=== PATIENT | male | born 1955 | race Caucasian/White ===

== ENCOUNTER → 2017-12-11 | Outpatient (CLI) | payer OTHER ==
--- NOTE | 2017-12-11 17:00 | MRI ---
EXAM DESCRIPTION: Lumbar Spine w/wo Contrast: Magnetic resonance imaging. CLINICAL HISTORY: LOW BACK PAIN COMPARISON: None Available. TECHNIQUE: Multiplanar, MRI, multiple standard sequences, without and with standard dose Gadolinium IV contrast, lumbar spine. No adverse reactions. FINDINGS: L5-S1: Moderate loss of disc space. Anterior bulging and endplate ridging. Modic type II endplate reactive changes. Trace retrolisthesis with posterior midline 4 mm disc bulge abutting the thecal sac and descending right S1 nerve above the lateral right recess. Moderate canal narrowing. Flavum ligaments and facets are unremarkable. Mild right foraminal stenosis and moderate left foraminal narrowing. Minimal enhancement in the posterior disc. L4-5: Disc desiccation with no disc space loss. Posterior midline 3 mm bulge with annular fissure abutting the thecal sac. Enhancement of the fissure. Bilateral flavum ligament hypertrophy with borderline canal stenosis. Bilateral mild to moderate foraminal narrowing. Bilateral subarticular recess narrowing. L3-4: Minimal disc desiccation with no significant bulging. Disc bulge bilaterally into the foramina with mild narrowing more on the right. Facet arthrosis and ligament hypertrophy with mild canal narrowing. Minimal facet and enhancement. L2-3: Minimal disc desiccation with anterior bulging. No posterior bulging. Bilateral flavum ligament hypertrophy with mild canal narrowing. Bilateral foramina are patent. L1-2: Disc desiccation and mild disc space loss. Anterior bulging with endplate ridging. Tiny posterior midline bulge. Bilateral flavum ligament hypertrophy and mild canal narrowing. Minimal facet arthrosis. Bilateral foramina are patent. Normal enhancement. Conus terminates at L1 with normal contrast enhancement. T12-L1 minimal disc desiccation and minimal anterior bulging. Canal and foramina are patent. Vertebral bodies are not compressed at any level. Normal marrow signal in the vertebral bodies and the posterior elements. Contrast enhancement. Paravertebral soft tissues show muscle atrophy.Perivertebral contrast enhancement unremarkable. IMPRESSION: 1. Right posterior bulging disc abutting the thecal sac and the descending right S1 nerve above the lateral recess. Canal narrowing. Moderate spondylosis in the disc space. Mild right foraminal stenosis. 2. Posterior midline disc bulge with annular fissure enhancing. Borderline mild canal stenosis. Moderate bilateral foraminal narrowing. 3. Mild spondylosis L1-2 with tiny posterior disc bulge. Electronically signed by: Nicholas Pearce MD 12/11/2017 4:59 PM ANALYSIS CONSULTANT
--- NOTE | 2017-12-11 20:12 | US ---
EXAM DESCRIPTION: Thyroid: Ultrasound. CLINICAL HISTORY: NONTOXIC SINGLE THYROID NODULE COMPARISON: None. TECHNIQUE: Transcutaneous scannin-dimensional and Doppler modes. Largest nodule(s) bilaterally will have point score for TI-RADS. FINDINGS: Right lobe dimensions 6.2 x 3.5 x 3.0 cm. Heterogeneous echoes. Heterogeneous, solid, isoechoic mass with ill-defined donato, echogenic foci without shadowing, wider than tall orientation. Dimensions are 3.4 x 2.9 cm in the transverse plane and 2.4 cm AP. Decreased vascularity. Decreased vascularity in the remainder of the lobe with no echogenic foci. Contour right lobe smooth. Juxta-thyroid masses/fluid: none. Left lobe dimensions 4.7 x 2.3 x 1.8 cm. Heterogeneous echoes. No cystic, no solid, and no complex lesions. Decreased vascularity. No echogenic foci. Contour left lobe smooth. Juxta-thyroid masses/fluid: none. Isthmus thickness 4.5 mm. Heterogeneous echoes. No cystic, no solid, and no complex lesions. Decreased vascularity. Contour smooth. IMPRESSION: 1. 3.4 cm solid mass with echogenic foci in the right lobe of the thyroid gland. TI-RADS score 6, grade TR 4-moderately suspicious. With diameter greater than 1.5 cm, fine-needle aspiration sampling should be considered. Please see recommendations below.* 2. No other nodules in the thyroid gland. No discrete solid masses, cystic masses, or edema in the surrounding soft tissues. *ACR TI-RADS recommendations: TR5 (greater than or equal to 7 points) - FNA if greater than or equal to 1 cm, follow-up if 0.5 - 0.9 cm every year for 5 years TR4 (4-6 points) - FNA if greater than or equal to 1.5 cm, follow-up if 1 - 1.4 cm in 1, 2, 3 and 5 years TR3 (3 points) - FNA if greater than or equal to 2.5 cm, follow -up if 1.5 - 2.4 cm in 1, 3 and 5 years TR2 (2 points) and TR1 (0 points) - No FNA or follow-up * ACR TI-RADS recommends that no more than two nodules with the highest ACR TI-RADS total point should be biopsied and no more than four nodules should be followed. White Paper of the ACR TI-RADS Committee, [place], 2017. Electronically signed by: Nicholas Pearce MD 12/11/2017 8:11 PM INSURANCE BUSINESS ANALYST
== END ==
LOC: US 08:59
PROVIDERS: ATTEND Neurological Surgery
DX: M51.27 Other intervertebral disc displacement, lumbosacral region (principal); M48.07 Spinal stenosis, lumbosacral region; E04.1 Nontoxic single thyroid nodule

== ENCOUNTER → 2018-01-24 | Outpatient (CLI) | payer OTHER ==
--- NOTE | 2018-01-24 12:32 | US ---
Thyroid Ultrasound Biopsy CLINICAL INFORMATION: Nodule seen on prior thyroid ultrasound 12/11/2017. TECHNIQUE: Procedure was explained to the patient with risks and benefits. The patient gave verbal and written consent. Sterile preparation draping. 1% xylocaine dermal anesthetic. Sterile ultrasound guidance. A total of 5 passes right thyroid nodule; 3 needle samplings with a separate 1.5 inch, 25-gauge needle per sample, and 2 aspirations, with a separate 1.5 inch, 25-gauge needle/10-cc syringe set, per aspiration. Each sample was placed on a separate slide and fixed in 95% alcohol container. Saccomanno fluid drawn into aspirate needle and rinse injected into Saccomanno container. Specimens to be sent for pathologic examination at remote facility. . Patient tolerated procedure well, with no immediate complications. Biopsy #: 1 Nodule reference number based on prior diagnostic ultrasound:1 Maximum size: 3.4 cm Location: right; upper ACR TI-RADS risk category: TR4 (4-6 points) Reason for biopsy: meets ACR TI-RADS criteria Complications: None IMPRESSION: Successful ultrasound guided fine needle aspiration of thyroid nodule. Right thyroid lobe. Pathologic results pending at remote facility. Electronically signed by: Nicholas Pearce MD 01/24/2018 12:31 PM CDT
== END ==
LOC: US 09:16
PROVIDERS: ATTEND Internal Medicine
DX: D44.0 Neoplasm of uncertain behavior of thyroid gland (principal); E04.9 Nontoxic goiter, unspecified; E06.9 Thyroiditis, unspecified; K21.0 Gastro-esophageal reflux disease with esophagitis; E11.9 Type 2 diabetes mellitus without complications; G70.00 Myasthenia gravis without (acute) exacerbation; G20 Parkinson's disease; E66.9 Obesity, unspecified; G61.81 Chronic inflammatory demyelinating polyneuritis